=== PATIENT | female | born 1985 | race Caucasian/White ===

== ENCOUNTER 2016-09-13 16:12 | Emergency (ER) | payer MEDICAID ==
[~2016-09-13] VITALS: Ht 162.6 cm; Wt 95.0 kg
[~2016-09-13 16:12] MED LIST: AZIT250T94 PO; CETI10CA PO; IBUP-1542 PO; UDROBDM PO
[2016-09-13 16:13] VITALS: Ht 162.6 cm; Wt 95.0 kg
[2016-09-13] MEDS ORDERED: NPH10OT LEFT EAR (17:00)
--- NOTE | 2016-09-13 21:11 | ERD ---
ER Documentation Chief Complaint Date/Time DATE: 09/13/16 TIME: 21:08 Chief Complaint Left ear pain x 4 days HPI This is a 31-year-old female presenting to the emergency department complaining of left ear pain for the past 4 days. Patient rates the pain 8 out of 10. She denies any decreased hearing, discharge, fevers. Denies tinnitus. Denies taking any medications for this ROS All systems reviewed and are negative except as per history of present illness. Medications Home Meds Active Scripts Neomycin/Polymyxin/Hydrocort* (Cortisporin* Otic) 10 Ml Susp, 4 DROP LEFT EAR QID for 7 Days, EA Prov:SALVATORE RUBIO PA-C 09/13/16 Guaifenesin-Dextromethorphan* (Robitussin* DM) 100MG/10MG/5ML Syrup, 10 ML PO Q4H Y for COUGH for 5 Days, ML Prov:KIRSTEN SANCHEZ PA-C 01/23/16 Cetirizine Hcl* (Zyrtec*) 10 Mg Capsule, 10 MG PO DAILY, #14 TAB.CHEW Prov:KIRSTEN SANCHEZ PA-C 01/23/16 Azithromycin* (Zithromax*) 250 Mg Tablet, 250 MG PO .ZPACK DIRECTED, #6 TAB TAKE 500 MG (2 TABS) THE FIRST DAY THEN 250 MG (1 TAB) DAYS 2-5 Prov:KIRSTEN SANCHEZ PA-C 01/23/16 Ibuprofen* (Motrin*) 600 Mg Tab, 600 MG PO Q6H Y for PAIN AND OR ELEVATED TEMP, #30 TAB Prov:MANJINDER HERMAN NP 05/25/15 Reported Medications [None] No Conflict Check 11/13/12 Allergies Allergies: Coded Allergies: No Known Allergy (Unverified , 09/13/16) PMhx/Soc History of Surgery: No Anesthesia Reaction: No Hx Neurological Disorder: No Hx Respiratory Disorders: No Hx Cardiac Disorders: No Hx Psychiatric Problems: No Hx Miscellaneous Medical Probl: No Hx Alcohol Use: No Hx Substance Use: No Hx Tobacco Use: No Smoking Status: Never smoker Physical Exam Vitals Vital Signs Date Time Temp Pulse Resp B/P Pulse Ox O2 Delivery O2 Flow Rate FiO2 09/13/16 16:13 98.2 82 16 124/69 98 Physical Exam Const: Well-developed well-nourished Head: Atraumatic Eyes: Normal Conjunctiva ENT: Bilateral cerumen impaction, minimal left ear canal irritation Neck: Full range of motion..~ No meningismus. Resp: Clear to auscultation bilaterally Cardio: Regular rate and rhythm, no murmurs Abd: Soft, non tender, non distended. Normal bowel sounds Skin: No petechiae or rashes Back: No midline or flank tenderness Ext: No cyanosis, or edema Neur: Awake and alert Psych: Normal Mood and Affect Procedures/MDM This is a 31-year-old female presenting to the emergency department complaining of left ear pain for the past 4 days which is likely due to impacted cerumen impaction. However patient did have minimal ear irritation therefore she will be empirically treated for otitis externa. There was no evidence of otitis media, mastoiditis or tympanic membrane rupture. Patient stable to be discharged home with prescription for Cortisporin. Discussed return the ER for any worsening symptoms. She understands and agrees with plan Departure Diagnosis: Primary Impression: Left ear pain Condition: Stable Patient Instructions: Ear Wax, Treated Referrals: NO PRIMARY,CARE PHYSICIAN (PCP) Additional Instructions: Visite a lugo wiley parada para un EXAMEN.Regrese a estas instalaciones si no se mejora abbi esperbamos o abbi le dijimos. [place] toda la medicina haresh y abbi se le indic. Regrese a estas instalaciones si no se mejora abbi esperbamos o abbi le dijimos. SALVATORE RUBIO PA-C Sep 13, 2016 21:11
== END 2016-09-13 18:27 | disposition home or self-care (01) ==
LOC: FTE 16:12
DX: H92.02 Otalgia, left ear (principal)
CPT/HCPCS: 99283

== ENCOUNTER 2018-01-31 22:22 | Emergency (ER) | END 2018-01-31 23:22 | disposition home or self-care (01) ==

== ENCOUNTER 2018-07-01 16:16 | Emergency (ER) | payer MEDICAID ==
[~2018-07-01] VITALS: Ht 144.8 cm; Wt 67.0 kg
[~2018-07-01 16:16] MED LIST changes: +ALBU18HF INHALATION; +AZIT250T PO; -AZIT250T94 PO; +BENZ200C68 PO; +FLUT9.9S NASAL; +GUAI5SYR2 PO; +MED4DP PO; +NPH10OT LEFT EAR; +PHEN177S43 MT; -UDROBDM PO
[2018-07-01 16:19] VITALS: BP 146/78; PULSE 86; RESP 18; Ht 144.8 cm; Wt 67.0 kg
--- NOTE | 2018-07-01 16:21 | EN ---
Date/Time of Note Date/Time of Note DATE: 07/01/18 TIME: 16:21 ER Progress Note MSE in ED 3. Left fourth digit pain for the last month. Repetitive motion but no history of trauma. Mild tender PIP without erythema, deficits or signs of ischemia. X-ray initiated. STACY SOLER MD July 01, 2018 16:21
[2018-07-01] MEDS ORDERED: IBUPROFEN 800 MG TAB PO ONE (17:00)
[2018-07-01] MEDS ORDERED: NAPR-985 PO (17:19)
--- NOTE | 2018-07-01 17:25 | ERD ---
ER Documentation Chief Complaint Chief Complaint left 4 th digit pain, no trauma or swelling HPI This is a 33-year-old female patient who presents of pain in fourth digit of left hand x1 month. No trauma, swelling, fevers. Patient states at work she carries heavy loads and finger becomes painful at the end of the day and at night. Denies paresthesia. No chronic medical problems. No family history of arthritis. ROS All systems reviewed and are negative except as per history of present illness. Medications Home Meds Active Scripts Naproxen* (Naprosyn*) 500 Mg Tablet, 500 MG PO BID PRN for PAIN AND/OR INFLAMMATION, #30 TAB Prov:RENE HALL NP 07/01/18 Fluticasone Propionate (Flonase Allergy Relief) 9.9 Ml [place].susp, 1 SPRAY NASAL BID, #1 BOTTLE TO EACH NOSTRIL Prov:OLI GOMEZ PA-C 01/31/18 Phenol* (Chloraseptic* [place]) 177 Ml [place].pump, 2 SPRAY MT Q2H PRN for SORE THROAT, #1 BOTTLE Prov:OLI GOMEZ PA-C 01/31/18 Ibuprofen* (Motrin*) 600 Mg Tab, 600 MG PO Q6, #30 TAB Prov:OLI GOMEZ PA-C 01/31/18 Methylprednisolone* (Medrol* DOSE PACK) 4 Mg/Dose-Pack Tab.ds.pk, 4 MG PO . DIRECTED, #1 PACKET Prov:OLI GOMEZ PA-C 01/31/18 Benzonatate* (Benzonatate*) 200 Mg Capsule, 200 MG PO TID PRN for COUGH, #15 CAP Prov:OLI GOMEZ PA-C 01/31/18 Albuterol Sulfate* (Ventolin HFA*) 18 Gm Hfa.aer.ad, 2 PUFF INHALATION Q4H, #1 INHALER Prov:OLI GOMEZ PA-C 01/31/18 Neomycin/Polymyxin/Hydrocort* (Cortisporin* Otic) 10 Ml Susp, 4 DROP LEFT EAR QID for 7 Days, EA Prov:SALVATORE RUBIO PA-C 09/13/16 Guaifenesin-Dextromethorphan* (Robitussin* DM) 100MG/10MG/5ML Syrup, 10 ML PO Q4H PRN for COUGH for 5 Days, ML Prov:LAURAKIRSTEN Goss PA-C 01/23/16 Cetirizine Hcl* (Zyrtec*) 10 Mg Capsule, 10 MG PO DAILY, #14 TAB.CHEW Prov:KIRSTEN SANCHEZ PA-C 01/23/16 Azithromycin* (Zithromax*) 250 Mg Tablet, 250 MG PO .ZPACK DIRECTED, #6 TAB TAKE 500 MG (2 TABS) THE FIRST DAY THEN 250 MG (1 TAB) DAYS 2-5 Prov:KIRSTEN SANCHEZ PA-C 01/23/16 Ibuprofen* (Motrin*) 600 Mg Tab, 600 MG PO Q6H PRN for PAIN AND OR ELEVATED TEMP, #30 TAB Prov:MANJINDER HERMAN NP 05/25/15 Reported Medications [None] No Conflict Check 11/13/12 Allergies Allergies: Coded Allergies: No Known Allergy (Unverified , 01/31/18) PMhx/Soc Medical and Surgical Hx: pt denies Medical Hx, pt denies Surgical Hx History of Surgery: No Anesthesia Reaction: No Hx Neurological Disorder: No Hx Respiratory Disorders: No Hx Cardiac Disorders: No Hx Psychiatric Problems: No Hx Miscellaneous Medical Probl: No Hx Alcohol Use: No Hx Substance Use: No Hx Tobacco Use: No Smoking Status: Never smoker FmHx Family History: No diabetes, No coronary disease, No other Physical Exam Vitals Vital Signs Date Temp Pulse Resp B/P (MAP) Pulse Ox O2 O2 Flow FiO2 Time Delivery Rate 07/01/18 98.1 86 18 146/78 99 16:19 (100) Physical Exam Const: No acute distress Head: Atraumatic Eyes: Normal Conjunctiva ENT: Normal External Ears, Nose and Mouth. Neck: Full range of motion. No meningismus. Resp: Clear to auscultation bilaterally Cardio: Regular rate and rhythm, no murmurs Abd: Soft, non tender, non distended. Normal bowel sounds Skin: No petechiae or rashes Back: No midline or flank tenderness Ext: No cyanosis, or edema. 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 ED COURSE: The patient was stable throughout ED course. DIAGNOSTIC IMAGING: Read by radiologist. No fracture, dislocation, abnormality. PROCEDURES: Placement of finger splint. +csm post splint placement, good fit, instructions on care provided MEDICATIONS GIVEN: Ibuprofen Patient tolerated medication well with no adverse reactions. Patient reported improvement in pain. MDM: Patient's extremity symptoms have stabilized while they have been evaluated in the department and are appropriate for outpatient follow up. No evidence of compartment syndrome, neurologic injury, vascular injury, open joint, open fracture, tendon laceration, or foreign body. Patient was instructed on self care including use of heat, gentle stretching, use of splint, and follow-up with hand specialist. Referrals provided. DISPOSITION: The patient has been discharge home to follow-up with community physician. Departure Diagnosis: Primary Impression: Tenosynovitis Additional Impression: Pain of finger Condition: Stable Patient Instructions: What Is Trigger Finger?, Treating Trigger Finger Referrals: [facility] YOU HAVE RECEIVED A MEDICAL SCREENING EXAM AND THE RESULTS INDICATE THAT YOU DO NOT HAVE A CONDITION THAT REQUIRES URGENT TREATMENT IN THE EMERGENCY DEPARTMENT. FURTHER EVALUATION AND TREATMENT OF YOUR CONDITION CAN WAIT UNTIL YOU ARE SEEN IN YOUR DOCTORS OFFICE WITHIN THE NEXT 1-2 DAYS. IT IS YOUR RESPONSIBILITY TO MAKE AN APPOINTMENT FOR FOLOW-UP CARE. IF YOU HAVE A PRIMARY DOCTOR --you should call your primary doctor and schedule an appointment IF YOU DO NOT HAVE A PRIMARY DOCTOR YOU CAN CALL OUR PHYSICIAN REFERRAL HOTLINE AT IF YOU CAN NOT AFFORD TO SEE A PHYSICIAN YOU CAN CHOSE FROM THE FOLLOWING [facility] [address] [facility] [address] [facility] [address] [facility] [address] [facility] [address] [facility]. [facility] [address] [facility] Additional Instructions: Thank you very much for allowing us to participate in your care. Your health and safety is our top priority at [facility]. Call your primary care doctor TOMORROW for an appointment during the next 2-4 days and bring all the information and medications prescribed. Have prescriptions filled and follow precisely the directions on the label. If the symptoms get worse and your provider is unavailable, [facility]. Follow-up with hand specialist. Keep finger in splint until follow-up. You may remove splint for stretching and application of heat. Use Naprosyn twice a day for pain relief. Apply moist heat compress and gentle stretching daily. Return to the emergency room if pain becomes swollen, hot, painful, you develop fever. RENE HALL NP July 01, 2018 17:25
== END 2018-07-01 17:43 | disposition home or self-care (01) ==
LOC: FTE 16:16
DX: M65.9 Synovitis and tenosynovitis, unspecified (principal)
CPT/HCPCS: 29130; 73140; Z7502; Z7610